=== PATIENT | male | born 1990 | race African-American/Black ===

== ENCOUNTER 2018-07-31 22:08 | Emergency (ER) | payer SELFPAY ==
[2018-07-31 22:56] LABS: Bilirubin Negative (Negative); Blood, Urine Negative (Negative); Clarity CLOUDY (Clear); Glucose, Urine (Dipstick) Negative (Negative); Leukocyte Large (Negative); Nitrite Negative (Negative); Protein, Urine (Dipstick) Trace mg/dL (Neg-Trace); Specific Gravity, Urine 1.022 (1.002-1.036); pH, Urine 6.5 (5.0-9.0)
[2018-07-31 22:58] LABS: Bacteria/HPF None Seen HPF (None Seen); Hyaline Casts/LPF 0-3 HYALINE CAST LPF (0-3 Hyaline); Squamous Epithelial None Seen HPF (0-3)
--- NOTE | 2018-07-31 23:53 | RAD ---
RADIOGRAPH CHEST 1 VIEW: Date: 07/31/18 Time: 11:17 p.m. HISTORY: 28-year-old male with chest pain, fever, and chills. COMPARISON: 08/20/12. FINDINGS: There is a new finding of a small to moderate sized air space opacity at the right mid lung zone with inferior border broadly abutting the minor fissure. The rest of the visualized lung marav[place] are clear . The cardiomediastinal silhouette is normal. Lateral costophrenic angles are sharp. No pneumothorax. IMPRESSION: Right upper lobe pneumonia. JN [] POS: [facility]
[2018-08-01] MEDS ORDERED: Acetaminophen 500 MG TAB ONE (00:09)
[2018-08-01] MEDS ORDERED: Ibuprofen 200 MG TAB ONE (00:09)
[2018-08-01 00:18] LABS: Hemoglobin 13.6 g/dL (14.0-18.0); Mean Corpuscular HGB CONC 30.8 g/dL (32.0-36.0); Mean Corpuscular Hemoglobin 23.2 pg (27.0-31.0); Mean Corpuscular Volume 75.3 fL (78.0-98.0); Mean Platelet Volume 9.1 fL (7.4-10.4); Platelet Count 166 thou/uL (130-400); Red Blood Cell (RBC) Count 5.86 mill/uL (4.70-6.10); White Blood Cell (WBC) Count 17.5 thou/uL (4.8-10.8)
[2018-08-01 00:32] LABS: Band 5 % (5-11); Lymphocytes 10 % (21-51); MDiff Complete? YES; Monocytes 7 % (0-10); Neutrophil 78 % (42-75)
[2018-08-01 00:33] LABS: ALT (SGPT) 49 U/L (8-55); AST (SGOT) 32 U/L (5-34); Alkaline Phosphatase 61 U/L (40-150); Anion Gap 12 mmol/L (10-20); BUN (Urea Nitrogen) 15 mg/dL (8.9-20.6); Bilirubin, Total 0.9 mg/dL (0.2-1.2); CK (CPK) 158 U/L (30-200); Calc. Creatinine Clearance 0 mL/min (70-130); Calcium 9.1 mg/dL (7.8-10.44); Carbon Dioxide 22 mmol/L (22-29); Chloride 103 mmol/L (98-107); Estimated GFR-MDRD 82; Globulin 3.5 g/dL (2.4-3.5); Glucose 101 mg/dL (70-105); Lipase 8 U/L (8-78); Protein, Total 7.5 g/dL (6.0-8.3); Sodium 133 mmol/L (136-145)
--- NOTE | 2018-08-01 08:09 | ULT ---
PRELIMINARY REPORT/[facility]/EMERGENTY AFTER-HOURS PROCEDURE US Abdomen Limited, Right Upper Quadrant CLINICAL HISTORY: 28 years old, male; Pain and signs and symptoms; Nausea; Abdominal pain; Localized; Right upper quadr ant (ruq) TECHNIQUE: Real-time ultrasound of the right upper quadrant with image documentation. COMPARISON: No relevant prior studies available. FINDINGS: Liver: The liver demonstrates a normal echotexture. Hepatopetal flow is demonstrated in the main port al vein. Gallbladder: Negative Arshad's sign was reported by the clutch mechanic. No gallstones. Common bile duct: The extrahepatic bile duct diameter is 3 mm. No stones. No dilation. Pancreas: The visible portion of the pancreas is unremarkable. The pancreas is partially obscured by bowel gas. Right kidney: The right kidney measures 10.7 x 4.8 x 4.5 cm. No stones. No hydronephrosis. Aorta: The visible portion of abdominal aorta is unremarkable. Inferior vena cava: The visible portion of the inferior vena cava is unremarkable. IMPRESSION: Unremarkable examination. Thank you for allowing us to participate in the care of your patient. Dictated and Authenticated by: Carl Hilario MD 08/01/2018 2:03 AM Central Time ([place] & [place]) FINAL REPORT SONOGRAM RIGHT UPPER QUADRANT PERFORMED ON AN EMERGENCY BASIS: Date: 08/01/18 Time: 0014 hours HISTORY: Right upper quadrant pain. FINDINGS: Findings agree with the preliminary report by Dulce. No evidence of gallstones or biliary obstruction. POS: [facility]
== END 2018-08-01 02:25 | disposition home or self-care (01) ==
LOC: ERS 22:08
DX: J18.9 Pneumonia, unspecified organism (principal); F17.210 Nicotine dependence, cigarettes, uncomplicated
CPT/HCPCS: 36415; 71045; 76705; 80053; 81003; 81015; 82550; 83605; 83690; 85025; 87086

== ENCOUNTER 2021-10-31 21:22 | Emergency (ER) | payer SELFPAY ==
[2021-10-31] MEDS ORDERED: Acetaminophen 500 MG TAB ONE (23:03)
== END 2021-10-31 22:50 | disposition home or self-care (01) ==
LOC: ERS 21:22
DX: B34.9 Viral infection, unspecified (principal)
CPT/HCPCS: 99283